=== PATIENT | male | born 1955 | race African-American/Black ===

== ENCOUNTER 2021-12-26 17:31 | Emergency (ER) | payer MEDICARE, OTHER ==
[2021-12-26 17:48] VITALS: BP 127/87; PULSE 71; TEMP 97.9; BMI 25.6
[2021-12-26 19:55] LABS: BASO % 0.7 % (0-2.0); EOS % 1.2 % (0-4.5); HEMATOCRIT 30.9 % (35.4-49); HEMOGLOBIN 10.1 GM/dL (11.7-16.9); LYMPH % 21.1 % (8-40); MCH 27.6 pg (25.7-33.7); MCHC 32.9 g/dl (32.0-35.9); MEAN CELL VOLUME 83.8 fl (80-96); MEAN PLT VOLUME 6.5 fl (7.5-11.1); PLATELET COUNT 364 10^3/uL (134-434); RBC 3.68 M/mm3 (4.00-5.60); RDW 13.7 % (11.9-15.9); WHITE BLOOD COUNT 7.5 K/mm3 (4.0-10.0)
[2021-12-26 20:16] LABS: CALCIUM 8.9 mg/dL (8.5-10.1)
[2021-12-26 20:17] LABS: ALBUMIN 3.2 g/dl (3.4-5.0); BLOOD UREA NITROGEN 16.7 mg/dL (7-18)
[2021-12-26 20:20] LABS: BILIRUBIN,TOTAL 0.5 mg/dL (0.2-1); CREATININE 1.1 mg/dL (0.55-1.3); TOT PROT 7.5 g/dl (6.4-8.2)
== END 2021-12-26 20:38 | disposition home or self-care (01) ==
LOC: JER 17:31
DX: R42 Dizziness and giddiness (principal)
CPT/HCPCS: 36415; 71046-TC-FY; 80053; 82550; 82553; 84484; 85025; 93005; 93010; 99285-25